=== PATIENT | female | born 1970 | race Caucasian/White ===

== ENCOUNTER 2018-10-02 07:32 | Day surgery (SDC) | payer BC ==
[2018-10-02] MEDS ORDERED: MIDAZOLAM 1 MG/ML 2 ML INJ ×2 (09:09)
[2018-10-02] MEDS ORDERED: FENTAnyl 50 MCG/ML VIAL (09:10)
== END 2018-10-02 12:37 | disposition home or self-care (01) ==
LOC: GIL 07:32
DX: K29.50 Unspecified chronic gastritis without bleeding (principal)
CPT/HCPCS: 43239; 84703; 88305; 88312